=== PATIENT | male | born 1960 | race American Indian/Alaskan Native ===

== ENCOUNTER → 2023-08-21 | Outpatient (CLI) | payer OTHER | END | disposition home or self-care (01) | LOC: RADMN 11:56 | PROVIDERS: ATTEND Chiropractor | DX: M77.32 Calcaneal spur, left foot (principal); M77.31 Calcaneal spur, right foot; M19.90 Unspecified osteoarthritis, unspecified site | CPT/HCPCS: 73610-TC ==